=== PATIENT | male | born 1975 | race Caucasian/White ===

== ENCOUNTER 2016-05-13 10:43 | Emergency (ER) | payer MEDICAID ==
[2016-05-13 10:47] VITALS: PULSE 96; RESP 16; TEMP 99
--- NOTE | 2016-05-13 11:54 | EDPHY ---
H & P Time Seen by Provider: 05/13/16 10:59 HPI/ROS: CHIEF COMPLAINT: cough, congestion HISTORY OF PRESENT ILLNESS: Patient is a 40-year-old male who presents emergency department with ongoing cough and congestion. Patient states symptoms started 1 month ago with sore throat and cough. His cough has been persistent and is productive of yellow sputum. He denies shortness of breath. He was seen at [facility] by Dr. Krupa Garza and started on azithromycin last Saturday. He took a complete 5 day course. He is concerned because he is returning to grad school and he still has a cough. No nausea or vomiting. No abdominal pain. REVIEW OF SYSTEMS: My complete review of systems is negative except as mentioned in the HPI. Past Medical/Surgical History: Negative Past surgical history: Includes appendectomy Smoking Status: Never smoked Physical Exam: Vitals noted. 37.2. 133/92, 96, 16, 96% on room air GENERAL: Well-appearing, in no acute distress, alert. HEENT: Eyes normal to inspection, normal pharynx, no signs of dehydration. NECK: No thyromegaly, no lymphadenopathy, supple. RESPIRATORY: Clear to auscultation bilaterally, no rales, rhonchi or wheezing. Normal CVS: Regular rate and rhythm, no rubs, murmurs, or gallops. ABDOMEN: Soft, nontender, nondistended, no organomegaly. BACK: Normal to inspection, no CVA tenderness. SKIN: Normal color, no rash, warm, dry. No pallor. EXTREMITIES: No pedal edema, no calf tenderness, no Homans sign or cords, no joint swelling. NEURO/PSYCH: Alert and oriented, normal mood and affect Constitutional: Initial Vital Signs Temperature (C) 37.2 C 05/13/16 10:45 Heart Rate 96 05/13/16 10:45 Respiratory Rate 16 05/13/16 10:45 Blood Pressure 133/92 H 05/13/16 10:45 O2 Sat (%) 96 05/13/16 10:45 O2 Delivery Mode Room Air Allergies/Adverse Reactions: Milk Containing Products [Milk Products] Adverse Reaction (Verified 06/29/11 02: 10) Wheat Containing *RETIRED-01/07/12 [Wheat Containing Prod] Adverse Reaction ( Verified 06/29/11 02:09) Home Medications: Medication Instructions Recorded No Medications [NO HOME 1 ea MISC 06/28/11 MEDICATIONS] Cyclobenzaprine [Flexeril] 10 mg PO TID #15 tab 04/01/14 Oxycodone HCl [Oxyir] 5 mg PO Q4H PRN #20 capsule 04/01/14 methylPREDNISolone [Medrol Dose 1 each PO AD #1 ea 04/01/14 Pierre] Hydrocodone/APAP 5/325 [[place] 1 - 2 tab PO Q4-6PRN PRN #13 tab 08/04/14 5/325] predniSONE 40 mg PO DAILY 4 Days 05/13/16 Medical Decision Making ED Course/Re-evaluation: In the emergency department I discussed possible etiologies with the patient. Patient was fairly adamant he wanted a chest x-ray prior to leaving for grad school. Chest x-ray: Please refer the dictated report. No pneumonia,infiltrate. Perihilar bronchitis. Patient was given prednisone prescription. He will take his entire course. He was given albuterol from [facility] but has not been using it. He was instructed on using the albuterol 3 times daily. I gave the patient warnings prior to leaving. He will return with worsening symptoms. Differential Diagnosis: My differential includes but is not limited to bronchitis, pneumonia, whooping cough, viral illness, empyema, zoonic disease Departure - Departure Disposition: Home, Routine, Self-Care Clinical Impression: Acute bronchitis Qualifiers: Bronchitis organism: unspecified organism Qualifier Code: (J20.9) Acute bronchitis, unspecified Condition: Good Instructions: Acute Bronchitis (ED) Additional Instructions: Take your entire course of antibiotics. Use your inhaler 3 times daily. Return with increasing cough, fever, shortness of breath or any other concerns. Referrals: Krupa Garza [Primary Care Provider] - 5-7 days, call for appt. Prescriptions: predniSONE 40 mg PO DAILY 4 Days
--- NOTE | 2016-05-13 12:27 | DX ---
Chest, PA Upright and Lateral Views May 13, 2016 at 11:31 a.m. Clinical History: 40-year-old male with a cough and symptoms ongoing for one month. Comparison Study: None. Findings: The cardiac and mediastinal silhouettes are normal in size. There is mild central perihilar bronchial wall thickening, but there is no focal infiltrate, atelectasis, pleural effusion, peripher al interstitial edema, or pneumothorax. The patient's arms obscure the anterior retrosternal space on the lateral view. The osseous structures are age-appropriate. The trachea is midline. Impression: Mild perihilar bronchitis, without a focal infiltrate.
[2016-05-13 13:02] VITALS: BP 138/90; O2SAT 95
== END 2016-05-13 13:01 | disposition home or self-care (01) ==
DX: J20.9 Acute bronchitis, unspecified (principal)

== ENCOUNTER 2018-04-13 19:47 | Emergency (ER) | payer MEDICAID ==
[2018-04-13 20:12] VITALS: BP 138/84
[2018-04-13] MEDS ORDERED: IPRATROPIUM/ALBUTEROL 3 ML DEYVIAL IH ONE (20:23)
[2018-04-13] MEDS ORDERED: ALBUTEROL INH PREPACK MDI TAKEHOME ONE (20:27)
--- NOTE | 2018-04-13 20:27 | EDPHY ---
H & P Stated Complaint: flu like sx x 5 day cough Time Seen by Provider: 04/13/18 20:05 HPI/ROS: CHIEF COMPLAINT: Persistent cough HISTORY OF PRESENT ILLNESS: 42-year-old male presents with a persistent cough. Onset cough 5 days ago, gradually increasing. Now has spasms of coughing and difficulty catching his breath during the coughing spasms. Associated with fever, diffuse myalgias and diarrhea. Fever has resolved today. Unable to sleep because of cough. No flu vaccination this year. REVIEW OF SYSTEMS: complete 10 point ROS reviewed and is negative except for the noted elements in the HPI - Personal History Current Tetanus/Diphtheria Vaccine: Yes Current Tetanus Diphtheria and Acellular Pertussis (TDAP): Yes Tetanus Vaccine Date: < 10 YEARS - Medical/Surgical History Hx Asthma: No Hx Chronic Respiratory Disease: No Hx Diabetes: No Hx Cardiac Disease: No Hx Renal Disease: No Hx Cirrhosis: No Hx Alcoholism: No Hx HIV/AIDS: No Hx Splenectomy or Spleen Trauma: No Other PMH: APPENDECTOMY - Social History Smoking Status: Never smoked Alcohol Use: Sober Drug Use: None - Physical Exam Exam: General Appearance: Alert, pleasant, nontoxic-appearing Eyes: Pupils equal and round, no conjunctival injection ENT, Mouth: Mucous membranes moist Neck: Normal inspection Respiratory: Diffuse expiratory wheezing Cardiovascular: Regular rate and rhythm Gastrointestinal: Abdomen is soft and nontender Neurological: A&O, nonfocal, normal gait Skin: Warm and dry Extremities: Normal inspection Psychiatric: Mood and affect normal Constitutional: Initial Vital Signs Temperature (C) 36.8 C 04/13/18 19:52 Heart Rate 89 04/13/18 19:52 Respiratory Rate 19 04/13/18 19:52 Blood Pressure 138/85 H 04/13/18 19:52 O2 Sat (%) 95 04/13/18 19:52 O2 Delivery Mode Room Air Allergies/Adverse Reactions: Milk Containing Products [Milk Products] Adverse Reaction (Verified 06/29/11 02: 10) Wheat Containing *RETIRED-01/07/12 [Wheat Containing Prod] Adverse Reaction ( Verified 06/29/11 02:09) Home Medications: Medication Instructions Recorded Azithromycin [Zithromax] 250 mg PO DAILY #6 tab 04/13/18 Hydrocodone/APAP 5/325 [[place] 1 - 2 tab PO Q4H PRN #15 tab 04/13/18 5/325 (*)] Medical Decision Making - Diagnostics Imaging Results: Chest X-Ray 04/13/18 20:05 Impression: Chronic or recurrent airways disease with a new patchy density in the posterior hemithorax, side indeterminate. Recommend follow-up chest x-ray after appropriate treatment, to ensure clearing. Imaging: I viewed and interpreted images myself ED Course/Re-evaluation: This patient presents with persistent cough and bronchospasm. Pertussis ordered d/t spasms of cough. DuoNeb given. Feels much better after the DuoNeb and cough cough past subsided. Lungs are clear to auscultation after the DuoNeb. Chest x-ray is unremarkable and results discussed with the patient. Differential Diagnosis: Differential diagnosis includes though it is not limited to pneumonia, pertussis , COPD exacerbation, pneumothorax, pulmonary embolism, pertussis, influenza. - Data Points Medications Given: Discontinued Medications Albuterol Sulfate (Proventil Inh Prepack) 1 mdi TAKEHOME EDNOW ONE Stop: 04/13/18 20:28 Last Admin: 04/13/18 20:36 Dose: 1 mdi Albuterol/Ipratropium (Duoneb) 3 ml IH EDNOW ONE Stop: 04/13/18 20:24 Last Admin: 04/13/18 20:35 Dose: 3 ml Departure - Departure Disposition: Home, Routine, Self-Care Clinical Impression: Acute bronchitis Qualifiers: Bronchitis organism: unspecified organism Qualified Code(s): J20.9 - Acute bronchitis, unspecified Condition: Good Instructions: Albuterol (By mouth), Acute Bronchitis (ED) Additional Instructions: 1. Drink plenty of fluids. 2. Take Tylenol or ibuprofen as needed for myalgias and fever. 3. Albuterol inhaler 2 puffs every 6 hr as needed for wheezing. 4. Take antibiotics as prescribed. 5. Return for worsening symptoms or any concerns. Referrals: Maggie Calderón, PAC [Primary Care Provider] - 2-3 days, if not improved Prescriptions: Azithromycin [Zithromax] 250 mg PO DAILY #6 tab Hydrocodone/APAP 5/325 [[place] 5/325 (*)] 1 - 2 tab PO Q4H PRN #15 tab PRN Reason: Cough, Severe
== END 2018-04-13 21:06 | disposition home or self-care (01) ==
DX: J20.9 Acute bronchitis, unspecified (principal)
CPT/HCPCS: 86615-90